=== PATIENT | male | born 1975 | race Caucasian/White ===

== ENCOUNTER 2017-07-23 08:08 | Emergency (ER) | payer MEDICAID | END 2017-07-23 09:24 | disposition home or self-care (01) | LOC: D.ER 08:08 | DX: S22.32XA Fracture of one rib, left side, initial encounter for closed fracture (principal); W50.1XXA Accidental kick by another person, initial encounter; Y93.89 Activity, other specified; Y92.89 Other specified places as the place of occurrence of the external cause; F17.200 Nicotine dependence, unspecified, uncomplicated ==

== ENCOUNTER 2018-06-23 04:16 | Emergency (ER) | payer SELFPAY ==
[~2018-06-23] VITALS: Ht 167.6 cm; Wt 65.9 kg
[2018-06-23 04:21] VITALS: Ht 167.6 cm; Wt 65.9 kg
[2018-06-23] MEDS ORDERED: TYLENOL W/CODEI1 TAB PO (05:08)
[2018-06-23 05:38] VITALS: BP 133/78
== END 2018-06-23 05:32 | disposition home or self-care (01) ==
LOC: D.ER 04:16
DX: S01.81XA Laceration without foreign body of other part of head, initial encounter (principal); Y04.2XXA Assault by strike against or bumped into by another person, initial encounter; Y93.89 Activity, other specified; Y92.019 Unspecified place in single-family (private) house as the place of occurrence of the external cause; F17.200 Nicotine dependence, unspecified, uncomplicated